=== PATIENT | female | born 1995 | race Caucasian/White ===

== ENCOUNTER 2017-04-30 20:15 | Emergency (ER) | END 2017-05-01 02:20 | disposition home or self-care (01) ==

== ENCOUNTER 2018-05-02 19:49 | Emergency (ER) | payer MEDICAID, OTHER ==
[~2018-05-02] VITALS: Wt 89.0 kg
[~2018-05-02 19:49] MED LIST: CALC-143 PO; CIPR500T4 PO; FER325 PO; PHEN-538 PO; PREN1TAB79 PO
[2018-05-02 19:51] VITALS: RESP 18
--- NOTE | 2018-05-02 21:30 | ERD ---
ER Documentation Chief Complaint Chief Complaint VAG BLEEDING X'S 1 MONTH HPI 23-year-old female presents here to emergency department for complaints of vaginal bleeding that started a month ago, has been having menstruation longer t cerna the usual, stopped 6-10 pads per day, patient denies being . Complains of pelvic pain cramping pain 4/10 scale, not better or worse with anything. Patient denies any fever or chills. ROS All systems reviewed and are negative except as per history of present illness. Medications Home Meds Active Scripts Ferrous Sulfate* (Ferrous Sulfate*) 325 Mg Tabec, 325 MG PO BID, #60 TAB Prov:HASEEB COLUNGA RUBBISH COLLECTION SUPERVISOR 05/02/18 Ibuprofen* (Motrin*) 600 Mg Tab, 600 MG PO Q6H PRN for PAIN AND OR ELEVATED TEMP, #30 TAB Prov:HASEEB COLUNGA [employer] COLLECTION SUPERVISOR 05/02/18 Phenazopyridine Hcl* (Pyridium*) 200 Mg Tab, 200 MG PO TID PRN for URINARY PAIN, #6 TAB Prov:HASEEB COLUNGA [employer] COLLECTION SUPERVISOR 05/01/17 Ciprofloxacin Hcl* (Ciprofloxacin Hcl*) 500 Mg Tablet, 500 MG PO BID for 10 Days, TAB Prov:HASEEB COLUNGA RUBBISH COLLECTION SUPERVISOR 05/01/17 Ferrous Sulfate* (Ferrous Sulfate*) 325 Mg Tabec, 325 MG PO BID for 30 Days, TAB Prov:HASEEB COLUNGA RUBB[employer] COLLECTION SUPERVISOR 09/07/14 Reported Medications Calcium Citrate/Vitamin D (Citracal-Vitamin D 200 MG-250) 1 Each Tablet, 1 EACH PO DAILY, TAB 02/17/16 Vit W-Ca,Fe,FA(<1 mg) ( Vitamins) 1 Each Tablet, 1 EACH PO DAILY, TAB 12/21/15 Allergies Allergies: Coded Allergies: No Known Drug Allergies (Verified Allergy, Unknown, 02/08/16) PMhx/Soc Medical and Surgical Hx: pt denies Medical Hx, pt denies Surgical Hx History of Surgery: No Anesthesia Reaction: No Hx Neurological Disorder: No Hx Respiratory Disorders: No Hx Cardiac Disorders: No Hx Psychiatric Problems: No Hx Miscellaneous Medical Probl: No Hx Alcohol Use: No (denies) Hx Substance Use: No (denies) Hx Tobacco Use: No (denies) Smoking Status: Never smoker Fmx Family History: No diabetes, No coronary disease, No other Physical Exam Vitals Vital Signs Date Temp Pulse Resp B/P (MAP) Pulse Ox O2 O2 Flow FiO2 Time Delivery Rate 05/02/18 77 117/81 23:14 (93) 05/02/18 98.0 80 18 119/74 98 19:51 (89) Physical Exam GENERAL: The patient is well developed and appropriate for usual state of health, in no apparent distress. CHEST: Clear to auscultation bilaterally. There are no rales, wheezes or rhonchi. HEART: Regular rate and rhythm. No murmurs, clicks, rubs or gallops. No S3 or S4. ABDOMEN: Soft, nontender and nondistended. Good bowel sounds. No rebound or guarding. No gross peritonitis. No gross organomegaly or masses. No Najera sign or McBurney point tenderness. BACK: No midline or flank tenderness. EXTREMITIES: Equal pulses bilaterally. There is no peripheral clubbing, cyanosis or edema. No focal swelling or erythema. Full range of motion. Grossly neurovascularly intact. NEURO: Alert and oriented. Cranial nerves 2-12 intact. Motor strength in all 4 extremities with 5/5 strength. Sensation grossly intact. Normal speech and gait. SKIN: There is no apparent rash or petechia. The skin is warm and dry. HEMATOLOGIC AND LYMPHATIC: There is no evidence of excessive bruising or lymphedema. No gross cervical, axillary, or inguinal lymphadenopathy. Result Diagram: 05/02/182120 Results 24 hrs Laboratory Tests Test 05/02/18 21:19 05/02/18 21:21 Urine Color YELLOW Urine Clarity SLIGHTLY CLOUDY Urine pH 7.0 Bedside Urine pH (LAB) 7.5 Urine Specific Bonneau 1.009 Bedside Urine Protein (LAB) Negative Bedside Urine Glucose (UA) Negative Urine Ketones NEGATIVE mg/dL Bedside Urine Ketones (LAB) Negative Bedside Urine Blood 3+ Urine Nitrite NEGATIVE mg/dL Bedside Urine Nitrite (LAB) Negative Urine Bilirubin NEGATIVE mg/dL Urine Urobilinogen NEGATIVE mg/dL Urine Leukocyte Esterase 1+ Cecilio/ul Bedside Urine Leukocyte Esterase (L 1+ Urine Microscopic RBC 34 /HPF Urine Microscopic WBC 11 /HPF Urine Squamous Epithelial Cells FEW /HPF Urine Bacteria FEW /HPF Urine Hemoglobin 3+ mg/dL Urine Glucose NEGATIVE mg/dL Urine Total Protein NEGATIVE mg/dl White Blood Count 8.3 10^3/ul Red Blood Count 4.16 10^6/ul Hemoglobin 12.0 g/dl Hematocrit 36.9 % Mean Corpuscular Volume 88.7 fl Mean Corpuscular Hemoglobin 28.8 pg Mean Corpuscular Hemoglobin Concent 32.5 g/dl Red Cell Distribution Width 12.9 % Platelet Count 301 10^3/UL Mean Platelet Volume 11.0 fl Immature Granulocytes % 0.400 % Neutrophils % 66.3 % Lymphocytes % 26.6 % Monocytes % 4.2 % Eosinophils % 2.3 % Basophils % 0.2 % Nucleated Red Blood Cells % 0.0 /100WBC Immature Granulocytes # 0.030 10^3/ul Neutrophils # 5.5 10^3/ul Lymphocytes # 2.2 10^3/ul Monocytes # 0.4 10^3/ul Eosinophils # 0.2 10^3/ul Basophils # 0.0 10^3/ul Nucleated Red Blood Cells # 0.0 10^3/ul POC Beta HCG, Qualitative NEGATIVE Beta HCG, Quantitative < 2.4 mIU/ml PROCEDURE: US Pelvis. CLINICAL INDICATION: Vaginal bleeding for 30 days according to the patient. TECHNIQUE: Multiple sonographic images of the pelvis were obtained utilizing a transabdominal technique. No transvaginal images were presented. The images were reviewed on a PACS workstation. COMPARISON: 05/01/2017 FINDINGS: Uterus is normal in size and contour. Uterine dimensions are 8.4 x 4.1 x 5.0 cm No adnexal masses are grossly evident. There does not appear to be any large volume of free fluid in the pelvis. The endometrium appears unremarkable with a thickness of 8 mm. There is no evidence of mass or abnormal fluid in the endometrial canal. The right ovary appears normal and measures 3.3 x 3.4 x 2.1 cm. Blood flow is present. The left ovary appears normal and measures 3.9 x 3.7 x 1.8 cm. Blood flow is present. IMPRESSION: 1. Sonographically unremarkable uterus and ovaries. RPTAT:AAJJ Physician Lorena Date Time Electronically viewed and signed by Physician Lorena on 05/02/2018 22:15 GW/ CC: HASEEB COLUNGA NP [id number] Procedures/MDM Medical Decision Making: Patients vaginal bleeding is most likely c onsistent with dysfunctional uterine bleeding.. Patient does not show any evidence of hypovolemic shock. Patients hemoglobin and hematocrit is stable. . DERRICK results show no fibroids, no abnormality. BetaHCG Quantitative is negative for . There is no signs of symptoms of dehydration. There is low suspicion for sepsis. Patient appears well and is hemodynamically stable. Disposition: Home. Condition: Stable Prescription: Ferrous sulfate, ibuprofen Instructions: Patient is advised to do bed rest, avoid heavy lifting, and avoid having sex until cleared by gynecology specialist, see gynecology specialist in the next 2-3 days for management. Patient is advised that is symptoms are worst, severe bleeding, dizziness, severe abdominal pain, fever, worst signs and symptoms to return to the emergency department immediately. Disclaimer: Inadvertent spelling and grammatical errors are likely due to EHR/dictation software use and do not reflect on the overall quality of patient care. Also, please note that the electronic time recorded on this note does not necessarily reflect the actual time of the patient encounter. Departure Diagnosis: Primary Impression: Dysfunctional uterine bleeding Condition: Stable Patient Instructions: Dysfunctional Uterine Bleeding Additional Instructions: Patient is advised to do bed rest, avoid heavy lifting, and avoid having sex until cleared by gynecology specialist, see gynecology specialist in the next 2- 3 days for management. Patient is advised that is symptoms are worst, severe bleeding, dizziness, severe abdominal pain, fever, worst signs and symptoms to return to the emergency department immediately. HASEEB COLUNGA NP May 02, 2018 21:30 ANA DUBOIS MD May 03, 2018 01:23
[2018-05-02] MEDS ORDERED: IBUP-1542 PO (22:51)
[2018-05-02] MEDS ORDERED: FER325 PO (22:51)
[2018-05-02 23:14] VITALS: BP 117/81; PULSE 77
== END 2018-05-02 23:14 | disposition home or self-care (01) ==
LOC: FTE 19:49
DX: N93.9 Abnormal uterine and vaginal bleeding, unspecified (principal); R10.2 Pelvic and perineal pain
CPT/HCPCS: 76856; 81001; 81025; 84702; 85025; 86850; 86900; 86901; Z7502; 81003

== ENCOUNTER 2018-10-01 19:49 | Emergency (ER) | payer SELFPAY ==
[~2018-10-01] VITALS: Ht 157.5 cm; Wt 92.0 kg
[~2018-10-01 19:49] MED LIST changes: +IBUP-1542 PO
[2018-10-01 19:51] VITALS: BP 125/72; PULSE 78; RESP 18; Ht 157.5 cm; Wt 92.0 kg
[2018-10-01] MEDS ORDERED: ONDANSETRON (ODT) 4 MG TAB ODT STA (21:54)
[2018-10-01] MEDS ORDERED: MECLIZINE 12.5 MG TAB PO ONE (22:00)
[2018-10-01] MEDS ORDERED: MECL12.574 PO (22:23)
[2018-10-01] MEDS ORDERED: ONDA4TAB8 PO (22:23)
--- NOTE | 2018-10-01 22:25 | ERD ---
ER Documentation Chief Complaint Chief Complaint DIZZINESS X'S 1 DAY HPI 23-year-old female presented to ED for dizziness times a few hours. Patient states she was at dinner with her family she became a little dizzy and felt like the room was spinning. Patient denies any increased vaginal bleeding, loss of sensation, feeling as she is going to pass out. Patient denies any rapid or irregular heart palpitations. Patient denies any recent cold cough or flulike symptoms. Patient states this is never happened before. Patient states that it has improved a little since the initial onset of symptoms. Patient denies any chance of being and states she has no medical conditions and takes no medications for anything. ROS All systems reviewed and are negative except as per history of present illness. Medications Home Meds Active Scripts Ondansetron Hcl* (Zofran*) 4 Mg Tablet, 4 MG PO Q6H for NAUSEA AND/OR VOMITING, #30 TAB Prov:ADARSH HUTCHINSON PA-C 10/01/18 Meclizine Hcl* (Antivert*) 12.5 Mg Tab, 12.5 MG PO Q6H PRN for DIZZINESS, #20 TAB Prov:ADARSH HUTCHINSON PA-C 10/01/18 Ferrous Sulfate* (Ferrous Sulfate*) 325 Mg Tabec, 325 MG PO BID, #60 TAB Prov:HASEEB COLUNGA NP 05/02/18 Ibuprofen* (Motrin*) 600 Mg Tab, 600 MG PO Q6H PRN for PAIN AND OR ELEVATED TEMP, #30 TAB Prov:HASEEB COLUNGA NP 05/02/18 Phenazopyridine Hcl* (Pyridium*) 200 Mg Tab, 200 MG PO TID PRN for URINARY PAIN, #6 TAB Prov:HASEEB COLUNGA NP 05/01/17 Ciprofloxacin Hcl* (Ciprofloxacin Hcl*) 500 Mg Tablet, 500 MG PO BID for 10 Days, TAB Prov:HASEEB COLUNGA TIME PIECE REPAIRER 05/01/17 Ferrous Sulfate* (Ferrous Sulfate*) 325 Mg Tabec, 325 MG PO BID for 30 Days, TAB Prov:HASEEB COLUNGA TIME PIECE REPAIRER 09/07/14 Reported Medications Calcium Citrate/Vitamin D (Citracal-Vitamin D 200 MG-250) 1 Each Tablet, 1 EACH PO DAILY, TAB 02/17/16 Vit W-Ca,Fe,FA(<1 mg) ( Vitamins) 1 Each Tablet, 1 EACH PO DAILY, TAB 12/21/15 Allergies Allergies: Coded Allergies: No Known Drug Allergies (Verified Allergy, Unknown, 02/08/16) PMhx/Soc Medical and Surgical Hx: pt denies Medical Hx, pt denies Surgical Hx History of Surgery: No Anesthesia Reaction: No Hx Neurological Disorder: No Hx Respiratory Disorders: No Hx Cardiac Disorders: No Hx Psychiatric Problems: No Hx Miscellaneous Medical Probl: No Hx Alcohol Use: No (denies) Hx Substance Use: No (denies) Hx Tobacco Use: No (denies) Smoking Status: Never smoker FmHx Family History: No diabetes, No coronary disease, No other Physical Exam Vitals Vital Signs Date Temp Pulse Resp B/P (MAP) Pulse Ox O2 O2 Flow FiO2 Time Delivery Rate 10/01/18 97.7 78 18 125/72 99 19:51 (89) Physical Exam Const: No acute distress Head: Atraumatic Eyes: Normal Conjunctiva ENT: Normal External Ears, Nose and Mouth. Neck: Full range of motion. No meningismus. Resp: Clear to auscultation bilaterally Cardio: Regular rate and rhythm, no murmurs Abd: Soft, non tender, non distended. Normal bowel sounds Skin: No petechiae or rashes Back: No midline or flank tenderness Ext: No cyanosis, or edema Neur: Awake and alert Psych: Normal Mood and Affect Results 24 hrs Laboratory Tests Test 10/01/18 21:56 POC Beta HCG, Qualitative NEGATIVE Current Medications Medications Dose Sig/Myriam Start Time Status Last (Trade) Ordered Route PRN Stop Time Admin Dose Reason Admin Ondansetron 4 mg ONCE STAT 10/01/18 DC 10/01/18 HCl (Zofran ODT 21:54 10/01/18 22:19 Odt) 21:55 Meclizine 12.5 mg ONCE ONCE 10/01/18 DC 10/01/18 HCl PO 22:00 10/01/18 22:19 (Antivert) 22:01 Procedures/MDM ED course: Urine : Negative The patient was stable throughout the ED course. The patient and/or family informed of laboratory and diagnostic imaging results throughout the ED course. Medications given in ER: Meclizine Zofran Patient tolerated medication well with no adverse reactions. Patient reported improvement in pain. Medical decision makin-year-old female presented to ED for dizziness that came onset after eating dinner. Patient states that the symptoms have improved since the initial onset and that this is never happened to her before. Physical exam was unremarkable patient showed no neurological deficits. Patient shows no signs of anemia patient has good pallor, good cap refill, normal heart rate, is afebrile, denies any shortness of breath or chest pain. Patient's urine was negative patient was given a dose of meclizine and Zofran and on reevaluation appears to be doing much better and states the symptoms have resolved. At this time I have low suspicion for CVA, TIA, intracranial hemorrhage, meningitis, encephalitis, CO poisoning, temporal arteritis, benign intracranial hypertension, intracranial mass, glaucoma, preeclampsia, sinusitis, tension headache, migraine headache, cluster headache. Patient was advised if symptoms worsen return to ER immediately otherwise she should follow-up with her primary care provider in 1 to 2 days regarding this visit. Patient is in agreement to the treatment plan and all questions were answered upon discharge Prescription for home: Meclizine Zofran Discharge: At this time, patient is stable for discharge and outpatient management. I have instructed the patient to follow-up with his\her primary care physician in 1 to 2 days. I have discussed with the patient the possibility of needing to see a specialist for further work-up and imaging studies if symptoms persist. I have instructed the patient to promptly return to the ER for any new or worsening symptoms including increased pain, fever, nausea, vomiting, weakness or LOC. The patient and\or family expressed understanding of and agreement with this plan. All questions were answered. Home care instructions were provided. Disclaimer: Inadvertent spelling and grammatical errors are likely due to EHR\dictation software use and do not reflect on the overall quality of patient care. Also, please note that the electronic time recorded on the note does not necessarily reflect the actual time of the patient encounter. Departure Diagnosis: Primary Impression: Dizziness Condition: Good Patient Instructions: Dizziness (Vertigo) and Balance Problems: Ensuring Your Safety Referrals: COMMUNITY CLINICS YOU HAVE RECEIVED A MEDICAL SCREENING EXAM AND THE RESULTS INDICATE THAT YOU DO NOT HAVE A CONDITION THAT REQUIRES URGENT TREATMENT IN THE EMERGENCY DEPARTMENT. FURTHER EVALUATION AND TREATMENT OF YOUR CONDITION CAN WAIT UNTIL YOU ARE SEEN IN YOUR DOCTORS OFFICE WITHIN THE NEXT 1-2 DAYS. IT IS YOUR RESPONSIBILITY TO MAKE AN APPOINTMENT FOR FOLOW-UP CARE. IF YOU HAVE A PRIMARY DOCTOR --you should call your primary doctor and schedule an appointment IF YOU DO NOT HAVE A PRIMARY DOCTOR YOU CAN CALL OUR PHYSICIAN REFERRAL HOTLINE AT IF YOU CAN NOT AFFORD TO SEE A PHYSICIAN YOU CAN CHOSE FROM THE FOLLOWING [facility] [address] [facility] [address] [facility] [address] [facility] [address] [facility] [address] [facility]. [facility] [address] [facility] YOU HAVE RECEIVED A MEDICAL SCREENING EXAM AND THE RESULTS INDICATE THAT YOU DO NOT HAVE A CONDITION THAT REQUIRES URGENT TREATMENT IN THE EMERGENCY DEPARTMENT. FURTHER EVALUATION AND TREATMENT OF YOUR CONDITION CAN WAIT UNTIL YOU ARE SEEN IN YOUR DOCTORS OFFICE WITHIN THE NEXT 1-2 DAYS. IT IS YOUR RESPONSIBILITY TO MAKE AN APPOINTMENT FOR FOLOW-UP CARE. IF YOU HAVE A PRIMARY DOCTOR --you should call your primary doctor and schedule and appointment IF YOU DO NOT HAVE A PRIMARY DOCTOR YOU CAN CALL OUR PHYSICIAN REFERRAL HOTLINE AT . IF YOU CAN NOT AFFORD TO SEE A PHYSICIAN YOU CAN CHOSE FROM THE FOLLOWING [facility] INSTITUTIONS: [facility] [address] [place] [address] [facility] [address] [place] [address] [facility] [address] [place] [address] Additional Instructions: Return to this facility in 2 DAYS for a follow-up exam.Return sooner if your condition worsens. ADARSH HUTCHINSON PA-C Oct 01, 2018 22:25
== END 2018-10-01 22:59 | disposition home or self-care (01) ==
LOC: FTE 19:49
DX: R42 Dizziness and giddiness (principal); R11.10 Vomiting, unspecified
CPT/HCPCS: 81025; 99283

== ENCOUNTER 2018-11-17 03:43 | Emergency (ER) | payer SELFPAY ==
[~2018-11-17] VITALS: Ht 157.5 cm; Wt 88.6 kg
[~2018-11-17 03:43] MED LIST changes: +AMOX1TAB10 PO; +MECL12.574 PO; +ONDA4TAB8 PO
[2018-11-17 03:45] VITALS: BP 122/81; PULSE 86; RESP 18; Ht 157.5 cm; Wt 88.6 kg
[2018-11-17] MEDS ORDERED: DIPHTH/TET/ACEL PERTUSS (ADULT) 0.5 ML VIAL IM* ONE (04:00)
== END 2018-11-17 04:56 | disposition home or self-care (01) ==
LOC: FTE 03:43
DX: S91.151A Open bite of right great toe without damage to nail, initial encounter (principal); W53.11XA Bitten by rat, initial encounter; Y92.9 Unspecified place or not applicable; Z23 Encounter for immunization
CPT/HCPCS: 90471; 90715